=== PATIENT | male | born 1980 | race Caucasian/White ===

== ENCOUNTER 2016-02-14 12:32 | Emergency (ER) | payer OTHER ==
[~2016-02-14] VITALS: Ht 170.2 cm; Wt 54.4 kg
[~2016-02-14 12:32] MED LIST: ACET325T96 PO; CLON0.5T3 PO; MIRT15TA2 PO; MOML PO; SERT-234 PO
[2016-02-14] MEDS ORDERED: SODIUM CHLORIDE 0.9% 1000ML 1,000 ML IV STA (12:40)
[2016-02-14] MEDS ORDERED: SODIUM CHLORIDE 0.9% 1000ML 1,000 ML IV ONE (12:40)
[2016-02-14 12:41] VITALS: TEMP 36.8; Ht 170.2 cm; Wt 54.4 kg
[2016-02-14] MEDS ORDERED: BUPR75TA20 PO (12:42)
[2016-02-14] MEDS ORDERED: ZIPR1CAP5 PO (12:42)
[2016-02-14 13:13] LABS: BASO % 0.6 %; BASO ABS # 0.04 K/uL (0-0.2); COMPLETE YES; HEMATOCRIT 43.5 % (42-52); IG% 0.3 %; LYMPH % 18.8 %; LYMPH ABS # 1.16 K/uL (1.2-3.4); MEAN CELL VOLUME 85.6 fL (80-100); MEAN CORPUSCULAR HEMOGLOBIN 30.1 pg (25-34); MEAN CORPUSCULAR HGB CONC 35.2 g/dl (32-36); MEAN PLATELET VOLUME 10.5 fL (7.4-10.4); MONO % 8.9 %; NEUT % 70.4 %; PLATELET COUNT 218 K/uL (130-400); RED BLOOD COUNT 5.08 M/uL (4.7-6.1); WHITE BLOOD COUNT 6.18 K/uL (4.8-10.8)
[2016-02-14 13:27] LABS: BUN/CREATININE RATIO 15.7 (10-20); CALCIUM 9.3 mg/dl (8.5-10.1); CREATININE 0.96 mg/dl (0.60-1.40); POTASSIUM 4.2 mmol/L (3.5-5.1)
[2016-02-14 13:35] LABS: ACETAMINOPHEN < 2 ug/ml (10-30)
[2016-02-14] MEDS ORDERED: ONDANSETRON INJ 2 MG/ML 2 ML VIAL IV STA (13:42)
[2016-02-14] MEDS ORDERED: MoRPHine SULFATE 2 MG/ML CARP IV STA (13:42)
--- NOTE | 2016-02-14 15:23 | DIAGNOSTIC IMAGING REPORT ---
CHEST AND ABDOMEN 2 VIEWS HISTORY: eval for foreign body, perforation COMPARISON: Chest 01/22/2013. KUB 01/22/2013. FINDINGS: The lungs are clear. The cardiomediastinal silhouette is within normal limits. No pneumomediastinum. There is no pneumoperitoneum or pneumatosis. The bowel gas pattern is unremarkable. No evidence for bowel obstruction. No metallic radiopaque foreign bodies. There are 3 plastic buttons overlying the L5 vertebral body and sacrum. IMPRESSION: No acute cardiopulmonary process. No evidence for bowel obstruction. No metallic radiopaque foreign bodies. No pneumomediastinum or pneumoperitoneum. There are 3 plastic buttons overlying the L5 vertebral body and sacrum. These are likely external to the patient. Please correlate clinically. Electronically signed by: Chepe Chacon M.D. 02/14/2016 3:21 PM Dictated Date/Time: 02/14/2016 3:16 PM
[2016-02-14 16:51] VITALS: BP 135/78; PULSE 80; O2SAT 98
--- NOTE | 2016-02-14 19:15 | EMERGENCY ROOM VISIT NOTE ---
History Report prepared by Simón: Marni Lay Under the Supervision of: Dr. Mehul Porter M.D. 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 He cut himself on his right antecubital area and right neck. The patient came to the ED via ambulance from [facility]. Per EMS, the patient cut himself today because he wanted further treatment but they would not give it to him. EMS reports that he also cut his left antecubital area and the left side of his neck two days ago. The patient states that he has cut himself 4 times in the last 10 days and that he is unsure why he cut himself 5 days ago. He states that he cut his arm two days ago because he thought that he had an infection in his arm. The patient states that he cut himself today because he felt abused at the skilled nursing since they did not report that he cut himself two days ago. Currently , the patient states that he "hurts everywhere" and he thinks that he has a fever because he felt hot last night. When the patient was asked about how he gets the razor blades, he states that he swallows them and then regurgitates them. He states that he has some chest pain and abdominal pain. The patient has a history of bipolar disorder and anxiety. He states that his tetanus shot is up to date. Source of History: patient, transfer records, treating provider, EMS Onset: IRON ERECTOR Position: neck (right-sided), arm (right antecubital area) Quality: other (intentional self-cutting) Timing: other (one episode) Associated Symptoms: + abdominal pain, + chest pain, + fevers Note: "hurts everywhere" Review of Systems See HPI for pertinent positives & negatives. A total of 10 systems reviewed and were otherwise negative. Past Medical & Surgical Medical Problems: (1) Anxiety (2) Bipolar disorder Social History Problems: (1) Hepatitis C Old medical records were reviewed. Nurse's notes were reviewed and I agree with. Apparently tetanus shot is up-to-date Family History No pertinent family history Social History Drug Use: none Housing Status: other ([facility]) Occupation Status: other Current/Historical Medications Scheduled Bupropion (Wellbutrin), 75 MG PO BID Ziprasidone Hcl (Geodon), 20 MG PO HS Allergies Coded Allergies: Haloperidol (Unverified Allergy, Unknown, UNKNOWN, 02/14/16) Sulfamethoxazole w/Trimethoprim (Verified Allergy, Unknown, ., 02/14/16) Uncoded Allergies: VISTARIL (Allergy, Unknown, UNKNOWN, 02/14/16) Physical Exam Vital Signs Date Time Temp Pulse Resp B/P Pulse Ox O2 Delivery O2 Flow Rate FiO2 02/14/16 16:51 80 18 135/78 98 02/14/16 15:15 82 18 143/77 99 Room Air 02/14/16 12:41 36.8 90 18 127/77 96 Room Air Physical Exam General: Well developed well nourished non-ill appearing young male in no acute distress, breathing comfortably on room air. Dried blood on right side of neck and right arm in the antecubital area, no active bleeding. Normal speech HEENT: Normal cephalic atraumatic. Pupils are equal round and reactive to light. Extraocular movements are intact. Oropharynx is pink with moist mucous membranes. No swelling of the mouth lips or tongue. Neck: Supple with a midline trachea. No meningeal signs or stiffness, no JVD or bruits. No Stridor. Left neck has several superficial lacerations that are two days old and do not violate the platysma. Right neck has multiple jagged superficial lacerations that were explored and do not violate the platysma and are superficial. No active bleeding. Trachea. No crepitus. Chest: Clear to auscultation bilaterally. No wheezes or rhonchi. No increased work of breathing. Heart: regular rate and rhythm. Abdomen: Soft nontender, nondistended without rebound guarding or rigidity. Extremities: Left arm has an old laceration that goes into the subcutaneous fat. Right arm has multiple superficial lacerations. No cyanosis clubbing or edema. No calf tenderness or assymetry Spine/Back. Non tender to palpation. No CVA tenderness Skin: Good turgor without rashes. Neurologic exam: Cranial nerves two through 12 are intact. Motor and sensation are intact and symmetrical throughout. Psych: Normal thought process and affect are present. Medical Decision & Procedures ER Provider Diagnostic Interpretation: X-ray results as stated below per interpretation by me and the radiologist: CHEST AND ABDOMEN 2 VIEWS IMPRESSION: No acute cardiopulmonary process. No evidence for bowel obstruction. No metallic radiopaque foreign bodies. No pneumomediastinum or pneumoperitoneum. There are 3 plastic buttons overlying the L5 vertebral body and sacrum. These are likely external to the patient. Please correlate clinically. Electronically signed by: Chepe Chacon M.D. 02/14/2016 3:21 PM Dictated Date/Time: 02/14/2016 3:16 PM Laboratory Results 02/14/16 12:58 Red Blood Count 5.08, Mean Corpuscular Volume 85.6, Mean Corpuscular Hemoglobin 30.1, Mean Corpuscular Hemoglobin Concent 35.2, Mean Platelet Volume 10.5, Neutrophils (%) (Auto) 70.4, Lymphocytes (%) (Auto) 18.8, Monocytes (%) (Auto) 8.9, Eosinophils (%) (Auto) 1.0, Basophils (%) (Auto) 0.6, Neutrophils # (Auto) 4.35, Lymphocytes # (Auto) 1.16, Monocytes # (Auto) 0.55, Eosinophils # (Auto) 0.06, Basophils # (Auto) 0.04 02/14/16 12:58 Test 02/14/16 12:58 White Blood Count 6.18 K/uL (4.8-10.8) Red Blood Count 5.08 M/uL (4.7-6.1) Hemoglobin 15.3 g/dL (14.0-18.0) Hematocrit 43.5 % (42-52) Mean Corpuscular Volume 85.6 fL (80-100) Mean Corpuscular Hemoglobin 30.1 pg (25-34) Mean Corpuscular Hemoglobin Concent 35.2 g/dl (32-36) Platelet Count 218 K/uL (130-400) Mean Platelet Volume 10.5 fL (7.4-10.4) Neutrophils (%) (Auto) 70.4 % Lymphocytes (%) (Auto) 18.8 % Monocytes (%) (Auto) 8.9 % Eosinophils (%) (Auto) 1.0 % Basophils (%) (Auto) 0.6 % Neutrophils # (Auto) 4.35 K/uL (1.4-6.5) Lymphocytes # (Auto) 1.16 K/uL (1.2-3.4) Monocytes # (Auto) 0.55 K/uL (0.11-0.59) Eosinophils # (Auto) 0.06 K/uL (0-0.5) Basophils # (Auto) 0.04 K/uL (0-0.2) RDW Standard Deviation 39.6 fL (36.4-46.3) RDW Coefficient of Variation 12.5 % (11.5-14.5) Immature Granulocyte % (Auto) 0.3 % Immature Granulocyte # (Auto) 0.02 K/uL (0.00-0.02) Anion Gap 9.0 mmol/L (3-11) Est Creatinine Clear Calc Drug Dose 82.6 ml/min Estimated GFR () 118.2 Estimated GFR (Non- 102.0 BUN/Creatinine Ratio 15.7 (10-20) Calcium Level 9.3 mg/dl (8.5-10.1) Total Bilirubin 0.8 mg/dl (0.2-1) Direct Bilirubin 0.2 mg/dl (0-0.2) Aspartate Amino Transf (AST/SGOT) 18 U/L (15-37) Alanine Aminotransferase (ALT/SGPT) 52 U/L (12-78) Alkaline Phosphatase 58 U/L (45-117) Total Protein 7.1 gm/dl (6.4-8.2) Albumin 4.1 gm/dl (3.4-5.0) Lipase 135 U/L (73-393) Salicylates Level < 1.7 mg/dl (2.8-20) Acetaminophen Level < 2 ug/ml (10-30) Ethyl Alcohol mg/dL < 3.0 mg/dl (0-3) Laboratory studies as stated above per my review. Medications Administered Medications (Trade) Dose Ordered Sig/Karey Route Start Time Stop Time Status Last Admin Dose Admin Sodium Chloride 1,000 ml @ 999 mls/hr Q1H1M STAT IV 02/14/16 12:40 02/14/16 13:40 DC 02/14/16 13:19 999 MLS/HR Sodium Chloride (Nss 1000ml) 1,000 ml @ 150 mls/hr Q6H40M ONCE IV 02/14/16 12:40 02/14/16 18:10 DC 02/14/16 13:20 150 MLS/HR Ondansetron HCl (Zofran Inj) 4 mg NOW STAT IV 02/14/16 13:42 02/14/16 13:44 DC 02/14/16 13:51 4 MG Morphine Sulfate (MoRPHine SULFATE INJ) 2 mg NOW STAT IV 02/14/16 13:42 02/14/16 13:44 DC 02/14/16 13:51 2 MG ED Course 1236: Past medical records reviewed. The patient was evaluated in room B11, and a complete history and physical examination were performed. 1240: Ordered Sodium Chloride 1000 ml @ 150 mls/hr IV, Sodium Chloride 1000 ml @ 999 mls/hr IV 1250: I reexamined the patient now that his wounds are clean. 1300: I discussed the patient's case with Dr. Chacon - Radiology. He recommends starting with an acute abdominal series. 1341: I reassessed the patient. He states that he is in pain. 1342: Ordered Morphine Sulfate 2 mg IV, Zofran 4 mg IV 1400: I discussed the patient's case with the psych outpatient case manager. She is going to look into the patient's case. 1407: The psych outpatient case manager informed me that there is already a mental health unit at the skilled nursing. 1540: I reassessed the patient. He is doing fine. 1604: I discussed the patient's case with the mental health nurse from [facility]. She agrees with the treatment plan and they will take the patient back. 1620: Upon reevaluation, the patient is doing well. I reexamined the lacerations on his right neck. He is good to go back to the skilled nursing. I discussed the results and treatment plan with him. He verbalized agreement of the treatment plan. The patient was discharged home. Medical Decision Differentials include, but are not limited to; self-inflicted wounds, lacerations, depression, suicidal ideation. This patient comes in as described above. He was placed in room B 11. He is here for treatment and evaluation of self-inflicted wounds to the arms and neck bilaterally. The wounds on his left arm and neck are 2 days old and are therefore not amenable to suturing as it will get infected. The one on the left neck is superficial and does not by with the platysma. The one on the left arm does go to subtendinous fat but does not appear to be any deeper again , it is over 48 hours old. The right arm appears to be superficial as well and there is no active bleeding and there is no neurologic or neurovascular compromise the right neck has multiple cuts which did not bilaterally at the platysma. The base the wounds can be seen. The the trachea is midline. The patient speaking and swallowing without difficulties. He has no abdominal pain. I did get a chest x-ray as well as multiple blood testing and abdominal x -ray. He has no evidence of any additional foreign bodies or razor blades. There is no free air. Clinically, he has nothing to suggest perforation. He has no acute electrolyte or metabolic abnormalities. There is nothing to suggest an toxicologic process. He apparently is in the mental health unit in [facility]. We talked them and I talked to the nurse there and we are send him back where he can continue to get further medical care there and psychiatric care. He is to return if worsening symptoms or new problems or concerns they' re to use bacitracin sterile dressing on the wounds. He did receive a dose of IV morphine while he was here in the ER. He will be transferred back to [facility]'s psychiatric facility Consults Time Called: [phone] Consulting Physician: Dr. Chacon - Boby Returned Call: 1300 I discussed the patient's case with Dr. Ines Landis. He recommends starting with an acute abdominal series. Additional Consults: Time Called: 1542 Consulted Physician: Mental health nurse at [facility] Returned Call: 1604 Additional Comments: I discussed the patient's case with the mental health nurse from [facility]. She agrees with the treatment plan and they will take the patient back. Impression Primary Impression: Self-inflicted injury Additional Impressions: Laceration of neck, Laceration of arm Scribe Attestation The scribe's documentation has been prepared under my direction and personally reviewed by me in its entirety. I confirm that the note above accurately reflects all work, treatment, procedures, and medical decision making performed by me. Departure Information Dispostion Home / Self-Care ([facility]) Referrals Eriberto Butt (PCP) Forms HOME CARE DOCUMENTATION FORM, IMPORTANT VISIT INFORMATION Additional Instructions Return to the mental health blakely at [facility] Apply bacitracin and sterile dressing twice a day to the wound Return if: Worsening of symptoms, fever or chills,bleeding, increasing pain, any new problems
== END 2016-02-14 16:53 | disposition home or self-care (01) ==
LOC: EDBD 12:32 → C.EDB 12:35
DX: S11.91XA Laceration without foreign body of unspecified part of neck, initial encounter (principal); S41.112A Laceration without foreign body of left upper arm, initial encounter; X83.8XXA Intentional self-harm by other specified means, initial encounter; F31.9 Bipolar disorder, unspecified